=== PATIENT | male | born 1970 ===

== ENCOUNTER 2022-07-18 17:01 | Outpatient (REF) | payer MEDICAID, SELFPAY ==
[2022-07-18 21:51] LABS: Hemoglobin A1C 5.5 % (<5.7)
[2022-07-18 21:57] LABS: ALT 28 U/L (16-63); AST 20 U/L (15-37); Albumin 4.1 g/dL (3.4-5.0); Alkaline Phosphatase 80 U/L (46-116); BUN 14 mg/dL (7-18); Bilirubin, Total 0.4 mg/dL (0.2-1.0); Calcium 9.2 mg/dL (8.5-10.1); Calculated LDL 132 mg/dL (<100); Chloride 104 mmol/L (98-107); Cholesterol 198 mg/dL (<200); Estimated GFR 91.69 (mL/min/1.73m2); Glucose 90 mg/dL (74-106); HDL Cholesterol 44 mg/dL (40-60); Sodium 141 mmol/L (136-145); Total Protein 7.8 g/dL (6.4-8.2); Triglyceride 113 mg/dL (<150)
[2022-07-20 10:25] LABS: Hepatitis C Ab w Rflx HCV PCR Negative (Negative)
[2022-07-20 10:45] LABS: HIV-1/2 Ag & Ab Screen Negative (Negative)
== END 2022-07-18 17:02 | disposition home or self-care (01) ==
LOC: NCHCN 17:01
PROVIDERS: Visit Provider Nurse Practitioner Family
DX: I10 Essential (primary) hypertension (principal); E66.9 Obesity, unspecified; Z11.59 Encounter for screening for other viral diseases; Z11.4 Encounter for screening for human immunodeficiency virus [HIV]; Z13.1 Encounter for screening for diabetes mellitus
CPT/HCPCS: 80053; 80061; 86803; 87389; 83036

== ENCOUNTER 2023-07-25 14:57 | Outpatient (REF) | payer BC, SELFPAY ==
[2023-07-25 16:56] LABS: ALT 35 U/L (16-63); AST 22 U/L (15-37); Albumin 3.7 g/dL (3.4-5.0); Alkaline Phosphatase 78 U/L (46-116); Anion Gap 9.9 mmol/L (3-11); BUN 16 mg/dL (7-18); Bilirubin, Total 0.5 mg/dL (0.2-1.0); CO2 26.1 mmol/L (21.0-32.0); CREATININE 0.9 mg/dL (0.70-1.30); Calcium 8.8 mg/dL (8.5-10.1); Calculated LDL 134 mg/dL (<100); Chloride 105 mmol/L (98-107); Cholesterol 202 mg/dL (<200); Glucose 95 mg/dL (74-106); HDL Cholesterol 39 mg/dL (40-60); Potassium 4.5 mmol/L (3.5-5.1); Sodium 141 mmol/L (136-145); Total Protein 7.3 g/dL (6.4-8.2); Triglyceride 149 mg/dL (<150)
[2023-07-25 17:30] LABS: Hemoglobin A1C 5.8 % (<5.7)
== END 2023-07-25 14:58 | disposition home or self-care (01) ==
LOC: NCHCN 14:57
PROVIDERS: Visit Provider Nurse Practitioner Family
DX: I10 Essential (primary) hypertension (principal); E78.00 Pure hypercholesterolemia, unspecified; Z13.1 Encounter for screening for diabetes mellitus
CPT/HCPCS: 80053; 80061; 83036

== ENCOUNTER 2024-09-24 07:51 | Outpatient (REF) | payer BC, SELFPAY ==
[2024-09-24 14:32] LABS: ALT 29 U/L (16-63); AST 20 U/L (15-37); Albumin 3.8 g/dL (3.4-5.0); Alkaline Phosphatase 72 U/L (46-116); Anion Gap 8.3 mmol/L (3-11); BUN 13 mg/dL (7-18); Bilirubin, Total 0.5 mg/dL (0.2-1.0); CO2 27.7 mmol/L (21.0-32.0); CREATININE 0.8 mg/dL (0.70-1.30); Calcium 8.6 mg/dL (8.5-10.1); Chloride 104 mmol/L (98-107); Estimated GFR 106.48 (mL/min/1.73m2); Glucose 107 mg/dL (74-106); Potassium 4.1 mmol/L (3.5-5.1); Sodium 140 mmol/L (136-145); Total Protein 7.2 g/dL (6.4-8.2)
[2024-09-24 14:39] LABS: Hemoglobin A1C 5.6 % (<5.7)
[2024-09-24 14:53] LABS: Calculated LDL 97 mg/dL (<100); Cholesterol 158 mg/dL (<200); HDL Cholesterol 38 mg/dL (>or=40); Triglyceride 115 mg/dL (<150)
== END 2024-09-24 07:52 | disposition home or self-care (01) ==
LOC: NCHCN 07:51
PROVIDERS: Visit Provider Nurse Practitioner Family
DX: E66.9 Obesity, unspecified (principal)
CPT/HCPCS: 80053; 80061; 83036